=== PATIENT | female | born 1955 | race Caucasian/White ===

== ENCOUNTER → 2025-03-07 | Outpatient (CLI) | payer MEDICARE, SELFPAY ==
--- NOTE | 2025-03-07 10:23 | MRI_ITS ---
PROCEDURE: BRAIN WITHOUT CONTRAST 03/07/2025 REASON FOR EXAM: HEADACHES, SPEECH DISTURBANCE, HX OF TIA TECHNIQUE: Noncontrast brain MRI. Multiplanar and multisequence images were obtained. COMPARISON: None FINDINGS: No acute or hyperacute infarcts. No intracerebral or extra-axial hematomas. Bilateral cerebral periventricular and subcortical foci and patches of high T2/FLAIR WI signal. Normal MRI signal of the cerebellar hemispheres and brain stem. Dilated ventricular system, cortical sulci and extra-axial CSF spaces. No shift of midline structures. Normal MRI appearance of the petrous temporal bones cerebellopontine angles with no definite masses. Normal MRI appearance of orbital structures, both globes, optic nerves, optic chiasm, optic tracts and optic radiations. Scanned paranasal sinuses are unremarkable. MRI/Brain without Contrast IMPRESSION: No acute infarcts. No intracerebral or extra-axial hematomas. Bilateral cerebral microvascular ischemic changes. Age appropriate brain involutional changes. Reading [facility] [place] [id number]
== END | disposition home or self-care (01) ==
LOC: OPMRI 10:12
PROVIDERS: PCP Family Medicine
DX: R51.9 Headache, unspecified (principal); R47.9 Unspecified speech disturbances; Z86.73 Personal history of transient ischemic attack (TIA), and cerebral infarction without residual deficits
CPT/HCPCS: 70551